=== PATIENT | female | born 1965 | race African-American/Black ===

== ENCOUNTER 2017-11-18 10:32 | Emergency (ER) | payer OTHER, MEDICAID ==
[~2017-11-18] VITALS: Ht 160 cm; Wt 140.0 kg
[~2017-11-18 10:32] MED LIST: HYDR10TA65 PO; METH750T2 PO; TRAM50 PO; UNK BP MED
[2017-11-18 10:41] VITALS: BP 153/81; PULSE 93; RESP 20; TEMP 99.1; O2SAT 96
[2017-11-18] MEDS ORDERED: LISI2.5T3 PO (10:57)
[2017-11-18] MEDS ORDERED: GABA100C4 PO (10:57)
[2017-11-18] MEDS ORDERED: HYDR-2376 PO (10:57)
[2017-11-18] MEDS ORDERED: BACL10TA PO (10:57)
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
== END 2017-11-18 11:35 | disposition home or self-care (01) ==
LOC: NEPK 10:32
DX: S29.012A Strain of muscle and tendon of back wall of thorax, initial encounter (principal); I10 Essential (primary) hypertension; F17.200 Nicotine dependence, unspecified, uncomplicated; V89.2XXA Person injured in unspecified motor-vehicle accident, traffic, initial encounter
CPT/HCPCS: 99281